=== PATIENT | female | born 1940 | race American Indian/Alaskan Native ===

== ENCOUNTER 2018-11-21 18:09 | Emergency (ER) | payer OTHER ==
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
[2018-11-21 19:21] VITALS: BP 147/74
== END 2018-11-21 20:35 | disposition home or self-care (01) ==
LOC: ED 18:09
DX: S00.511A Abrasion of lip, initial encounter (principal); M79.651 Pain in right thigh; I10 Essential (primary) hypertension; E11.9 Type 2 diabetes mellitus without complications; V49.59XA Passenger injured in collision with other motor vehicles in traffic accident, initial encounter; Y93.89 Activity, other specified; Y92.89 Other specified places as the place of occurrence of the external cause; Y99.8 Other external cause status
CPT/HCPCS: 99282